=== PATIENT | male | born 1995 | race Caucasian/White ===

== ENCOUNTER 2017-06-06 21:12 | Emergency (ER) | payer SELFPAY ==
[2017-06-06 21:58] VITALS: BP 149/85; PULSE 66; TEMP 98.1; BMI 28.9
--- NOTE | 2017-06-06 22:12 | PDOC ---
History of Present Illness - General Chief Complaint: Pain Stated Complaint: FOOT INJURY Time Seen by Provider: 06/06/17 21:49 History Source: Patient Exam Limitations: No Limitations - History of Present Illness Initial Comments: 06/06/17 22:07 CC STS and redness to 2 toe left foot x 1 days; long hx of fungal infection to both feet Severity: mild Associated Symptoms: denies: chest pain Past History - Past Medical History Allergies/Adverse Reactions: Allergies Allergy/AdvReac Type Severity Reaction Status Date / Time No Known Allergies Allergy Verified 06/06/17 21:35 Home Medications: Ambulatory Orders No Home Medications 0 dose .ROUTE UTDICT 05/14/13 Cephalexin Monohydrate [Keflex -] 500 mg PO Q8H #30 capsule 06/06/17 Other medical history: Pt denies - Immunization History Immunization Up to Date: Yes - Suicide/Smoking/Psychosocial Hx Smoking Status: No Smoking History: Never smoked Have you smoked in the past 12 months: No Number of Cigarettes Smoked Daily: 0 Information on smoking cessation initiated: No Hx Alcohol Use: No Drug/Substance Use Hx: No Substance Use Type: None Review of Systems - Review of Systems Constitutional: No: Symptoms Reported, Chills, Fever, Malaise HEENTM: No: Symptoms Reported Respiratory: No: Symptoms reported Integumentary: Yes: Erythema, Lesions, Pruritus, Rash *Physical Exam - Vital Signs Last Vital Signs Temp Pulse Resp BP Pulse Ox 98.1 F 66 18 149/85 99 06/06/17 21:36 06/06/17 21:36 06/06/17 21:36 06/06/17 21:36 06/06/17 21:36 - Physical Exam General Appearance: Yes: Appropriately Dressed. No: Apparent Distress HEENT: negative: TMs Normal Neck: positive: Supple. negative: Tender, Rigid, Lymphadenopathy (R), Lymphadenopathy (L) Respiratory/Chest: positive: Lungs Clear. negative: Chest Tender Integumentary: positive: Normal Color, Other (multiple scaling lesions to both feet and between toes; STS to distal portion left 2nd toe with open wounds). negative: Erythema, Bruising Medical Decision Making - Medical Decision Making 06/06/17 22:10 will refer to podiatry for definitive care of underlying foot rash; will start on keflex with WC in 2 days here *DC/Admit/Observation/Transfer Diagnosis at time of Disposition: Cellulitis of second toe of left foot - Discharge Dispostion Disposition: HOME Condition at time of disposition: Stable Admit: No - Prescriptions Prescriptions: Cephalexin Monohydrate [Keflex -] 500 mg PO Q8H #30 capsule - Referrals Referrals: Germaine Campa MD [Primary Care Provider] - - Patient Instructions Additional Instructions: please follow up with senior oracle applications developer next week and return to ED for wound check on Friday - Post Discharge Activity
[2017-06-06] MEDS ORDERED: CEPHALEXIN MONOHYDRATE 500 MG CAPSULE (UD) PO ONE (22:13)
[2017-06-06] MEDS ORDERED: CEPHALEXIN MONOHYDRATE 500 MG CAPSULE (UD) ONE (22:15)
--- NOTE | 2017-06-06 22:37 | PDOC ---
*Physical Exam - Vital Signs Last Vital Signs Temp Pulse Resp BP Pulse Ox 98.1 F 66 18 149/85 99 06/06/17 21:36 06/06/17 21:36 06/06/17 21:36 06/06/17 21:36 06/06/17 21:36 ED Treatment Course - Medications Given in the ED: ED Medications Discontinued Medications Generic Name Dose Route Start Last Admin Trade Name Laurita PRN Reason Stop Dose Admin Cephalexin HCl 500 mg 06/06/17 22:13 06/06/17 22:20 Keflex - PO 06/06/17 22:14 500 mg ONCE ONE Administration *DC/Admit/Observation/Transfer Diagnosis at time of Disposition: Cellulitis of second toe, left - Discharge Dispostion Disposition: HOME Condition at time of disposition: Stable - Prescriptions Prescriptions: Cephalexin Monohydrate [Keflex -] 500 mg PO Q8H #30 capsule - Referrals Referrals: Germaine Campa MD [Primary Care Provider] - - Patient Instructions Additional Instructions: please follow up with rocket assembly operator next week and return to ED for wound check on Friday - Post Discharge Activity Forms/Work/School Notes: Back to Work
== END 2017-06-06 22:21 | disposition home or self-care (01) ==
LOC: JERFT 21:12
DX: L03.032 Cellulitis of left toe (principal)
CPT/HCPCS: 99281-25

== ENCOUNTER 2017-06-09 16:31 | Emergency (ER) | payer SELFPAY ==
[2017-06-09 16:38] VITALS: BP 142/88; PULSE 81; TEMP 98.6; BMI 28.9
--- NOTE | 2017-06-09 18:44 | PDOC ---
Suture Removal/Wound Check HPI - History of Present Illness Chief Complaint: Revisit,Wound Recheck Stated Complaint: REVISIT/WOUND CHECK Time Seen by Provider: 06/09/17 18:40 History Source: Yes: Patient Date of Last ED visit: 06/06/17 - Previous ED Treatment Type of procedure performed on last visit: Yes: Other (wound infection) Past History - Past Medical History Allergies/Adverse Reactions: Allergies Allergy/AdvReac Type Severity Reaction Status Date / Time No Known Allergies Allergy Verified 06/09/17 16:38 Home Medications: Ambulatory Orders Cephalexin Monohydrate [Keflex -] 500 mg PO Q8H #30 capsule 06/06/17 Other medical history: DENIES MEDICAL HX - Immunization History Immunization Up to Date: Yes - Suicide/Smoking/Psychosocial Hx Smoking Status: No Smoking History: Never smoked Have you smoked in the past 12 months: No Number of Cigarettes Smoked Daily: 0 Hx Alcohol Use: No Drug/Substance Use Hx: No Substance Use Type: None Suture Removal/Wound Check PE - Physical Exam Laceration/Wound Check Symptoms: reports: None Location of Laceration/Wound: right: Foot (minimal redness. wound clean and dry. ) *Review of Systems - Review of Systems Able to Perform ROS?: Yes *DC/Admit/Observation/Transfer Diagnosis at time of Disposition: Cellulitis of second toe, left, Encounter for wound re-check - Discharge Dispostion Disposition: HOME - Referrals Referrals: Germaine Campa MD [Primary Care Provider] - Call tomorrow - Patient Instructions Printed Discharge Instructions: DI for Wound Infection Additional Instructions: follow up with a web services professional as soon as possible. return to the ER if symptoms worsen. - Post Discharge Activity Forms/Work/School Notes: Back to Work
== END 2017-06-09 18:51 | disposition home or self-care (01) ==
LOC: JERFT 16:31
DX: L03.032 Cellulitis of left toe (principal)
CPT/HCPCS: 99281-25

== ENCOUNTER 2020-12-13 05:21 | Emergency (ER) | payer OTHER ==
[2020-12-13 05:49] VITALS: BP 125/69; PULSE 77; TEMP 97.9; BMI 29.5
[2020-12-13] MEDS ORDERED: ACETAMINOPHEN 325 MG TABLET (FP) PO ONE (06:13)
[2020-12-13] MEDS ORDERED: IBUPROFEN 200 MG TABLET PO ONE (06:13)
== END 2020-12-13 06:42 | disposition home or self-care (01) ==
LOC: JER 05:21
DX: K64.8 Other hemorrhoids (principal)
CPT/HCPCS: 99283-25

== ENCOUNTER 2020-12-15 06:04 | Emergency (ER) | payer OTHER ==
[2020-12-15 06:15] VITALS: BP 136/87; PULSE 76; TEMP 98.7; BMI 29.5
== END 2020-12-15 08:45 | disposition home or self-care (01) ==
LOC: JER 06:04
DX: K64.8 Other hemorrhoids (principal)
CPT/HCPCS: 99281-25